=== PATIENT | female | born 1995 | race Two or more races ===

== ENCOUNTER 2017-12-09 10:09 | Outpatient (CLI) | payer OTHER, MEDICAID ==
[~2017-12-09] VITALS: Ht 157.5 cm; Wt 80.9 kg
[2017-12-09] MEDS ORDERED: PREN-3 PO (10:16)
[2017-12-09 10:25] VITALS: BP 107/68
== END 2017-12-09 11:54 | disposition home or self-care (01) ==
LOC: LDOP 10:09 → EDSTATUS 12-12 10:09
PROVIDERS: ATTEND Obstetrics & Gynecology
DX: O36.8130 Decreased fetal movements, third trimester, not applicable or unspecified (principal); Z3A.39 39 weeks gestation of pregnancy
CPT/HCPCS: 59025; 76819; 99211; G0463